=== PATIENT | female | born 1990 | race African-American/Black ===

== ENCOUNTER 2018-08-09 20:28 | Emergency (ER) | payer BC | END 2018-08-09 21:00 | disposition home or self-care (01) | LOC: SCSER 20:28 | DX: J02.9 Acute pharyngitis, unspecified (principal); I10 Essential (primary) hypertension; Z79.899 Other long term (current) drug therapy | CPT/HCPCS: 87081; 87430; 99282 ==

== ENCOUNTER 2023-03-28 05:05 | Emergency (ER) | payer BC, SELFPAY ==
[2023-03-28] MEDS ORDERED: Iopamidol 370 76% 100 ML VIAL ONE (13:04)
== END 2023-03-28 07:28 | disposition home or self-care (01) ==
LOC: ERS 05:05
DX: S10.91XA Abrasion of unspecified part of neck, initial encounter (principal); R07.89 Other chest pain; R10.12 Left upper quadrant pain; I10 Essential (primary) hypertension; Y04.8XXA Assault by other bodily force, initial encounter
CPT/HCPCS: 70450; 70498; 71260; 72125; 74177; Q9967